=== PATIENT | male | born 1980 | race Caucasian/White ===

== ENCOUNTER 2017-12-22 10:10 | Emergency (ER) | payer BC ==
[2017-12-22 10:25] VITALS: BP 143/82
--- NOTE | 2017-12-22 11:12 | UC ---
General HPI - HPI Summary HPI Summary: Patient states that when he swallows he has some tenderness deep in his throat area(POINTS TO MID ANTERIOR NECK). He thinks he may have swollen glands for about a week as well. He states that he is concerned because he had some genetic testing that showed he had predisposition to esophageal cancer plus he has a cousin who just from some sort of a tumor or GI related tumor. He is denying any associated weight loss, fever or chills and reflux. He also denies any history of allergies. He has no trouble swallowing his secretions. Offers he drinks 1-2 alcoholic beverages daily and a caffeine beverage daily. - History of Current Complaint Chief Complaint: UCGeneralIllness Stated Complaint: THROAT/UPPER RESPIRATORY Time Seen by Provider: 12/22/17 10:45 Hx Obtained From: Patient Onset/Duration: Gradual Onset Timing: Constant Pain Intensity: 1 Aggravating: OCCURS WITH SWALLOW Alleviating: NOTHING - Allergy/Home Medications Allergies/Adverse Reactions: Allergies Allergy/AdvReac Type Severity Reaction Status Date / Time erythromycin base Allergy Unknown Verified 12/22/17 10:21 Reaction Details PMH/Surg Hx/FS Hx/Imm Hx Previously Healthy: Yes - Surgical History Surgical History: Yes Surgery Procedure, Year, and Place: T&A, ARTHROSCOPY LEFT KNEE, ORAL SURGERY - Family History Known Family History: Positive: Hypertension - Social History Occupation: Employed Full-time Alcohol Use: Daily Alcohol Amount: 1-2 daily- beer or wine Substance Use Type: None Smoking Status (MU): Never Smoked Tobacco Have You Smoked in the Last Year: No - Immunization History Hx Tetanus, Diphtheria Vaccination: No Vaccination Up to Date: Yes Review of Systems Constitutional: Negative Skin: Negative Eyes: Negative ENT: Negative Respiratory: Negative Cardiovascular: Negative Gastrointestinal: Negative Genitourinary: Negative Motor: Negative Neurovascular: Negative Musculoskeletal: Negative Neurological: Negative Psychological: Negative Is Patient Immunocompromised?: No All Other Systems Reviewed And Are Negative: Yes Physical Exam Triage Information Reviewed: Yes Appearance: Well-Appearing Vital Signs: Initial Vital Signs Temp 98.7 F 12/22/17 10:22 Pulse 76 12/22/17 10:22 Resp 16 12/22/17 10:22 BP 143/82 12/22/17 10:22 Pulse Ox 100 12/22/17 10:22 Eyes: Positive: Conjunctiva Clear ENT: Positive: Pharynx normal, TMs normal. Negative: Nasal congestion, Nasal drainage Neck: Positive: Supple, Nontender, No Lymphadenopathy, Other: - No stridor Respiratory: Positive: Lungs clear, Normal breath sounds Cardiovascular: Positive: RRR, No Murmur Abdomen Description: Positive: Nontender, No Organomegaly, Soft Bowel Sounds: Positive: Present Musculoskeletal: Positive: ROM Intact Neurological: Positive: Alert Psychological: Positive: Age Appropriate Behavior Skin Exam: Normal Diagnostics - Laboratory Diagnostic Studies Completed/Ordered: RAPID STREP=NEG Course/Dx - Course Course Of Treatment: subjective symptoms of dysphagia thus will refer to gi - Differential Dx - Multi-Symptom Provider Diagnoses: Dysphagia Discharge - Sign-Out/Discharge Documenting (check all that apply): Patient Departure - Discharge Plan Condition: Stable Disposition: HOME Patient Education Materials: Dysphagia (ED) Referrals: Ania Garcia PA [Primary Care Provider] - If Needed Waqar Krishnamurthy MD [Medical Doctor] - As Soon As Possible Additional Instructions: CALL DR COLIN(GI) TODAY FOR NEXT AVAILABLE APPOINTMENT. - Billing Disposition and Condition Condition: STABLE Disposition: Home
== END 2017-12-22 11:19 | disposition home or self-care (01) ==
LOC: UCCORT 10:10
DX: R13.10 Dysphagia, unspecified (principal); Z88.1 Allergy status to other antibiotic agents
CPT/HCPCS: 87651; 99211; G0463

== ENCOUNTER 2018-12-22 11:32 | Emergency (ER) | payer BC ==
[2018-12-22 12:11] VITALS: BP 126/77
--- NOTE | 2018-12-22 12:24 | UC ---
Hand/Wrist HPI - HPI Summary HPI Summary: 38-year-old male comes in with chief complaint of injury to his left middle and ring finger and right middle finger one week ago. 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 During that process he had injured his left middle and ring finger and his right middle finger. The right middle finger the PIP is the area of pain and swelling. On the left middle finger and ring finger of the DIP joints are affected. Patient reports the left middle finger DIP was angulated approximately 20. He was able to self reduce the angulation. Patient has swelling and the areas are described and they are tender to palpation. He does have full range of motion normal sensation. No skin break. - History Of Current Complaint Chief Complaint: UCUpperExtremity Stated Complaint: LEFT RING FINGER CONCERN Time Seen by Provider: 12/22/18 12:09 Pain Intensity: 3 - Allergies/Home Medications Allergies/Adverse Reactions: Allergies Allergy/AdvReac Type Severity Reaction Status Date / Time erythromycin base Allergy Unknown Verified 12/22/18 12:11 Reaction Details PMH/Surg Hx/FS Hx/Imm Hx Previously Healthy: Yes - Surgical History Surgical History: Yes Surgery Procedure, Year, and Place: T&A, ARTHROSCOPY LEFT KNEE, ORAL SURGERY - Family History Known Family History: Positive: Hypertension - Social History Alcohol Use: Daily Alcohol Amount: 1-2 daily- beer or wine Substance Use Type: None Smoking Status (MU): Never Smoked Tobacco Have You Smoked in the Last Year: No - Immunization History Hx Tetanus, Diphtheria Vaccination: No Vaccination Up to Date: Yes Review of Systems All Other Systems Reviewed And Are Negative: Yes Constitutional: Positive: Negative Skin: Positive: Other - Swelling and ecchymosis right middle finger PIP and left middle and ring finger DIP's. Eyes: Positive: Negative ENT: Positive: Negative Respiratory: Positive: Negative Cardiovascular: Positive: Negative Gastrointestinal: Positive: Negative Motor: Positive: Other - SEE HPI Neurovascular: Positive: Negative Musculoskeletal: Positive: Other: - SEE HPI Neurological: Positive: Negative Psychological: Positive: Negative Is Patient Immunocompromised?: No Physical Exam Triage Information Reviewed: Yes Appearance: Well-Appearing, No Pain Distress, Well-Nourished Vital Signs: Initial Vital Signs Temp 98 F 12/22/18 12:05 Pulse 63 12/22/18 12:05 Resp 16 08/06/19 12:05 BP 126/77 12/22/18 12:05 Pulse Ox 100 12/22/18 12:05 Vital Signs Reviewed: Yes Eye Exam: Normal Eyes: Positive: Conjunctiva Clear Neck: Positive: Supple Respiratory: Positive: No respiratory distress Musculoskeletal: Positive: Other: - There is swelling at the right middle finger PIP and left middle finger and ring finger DIPs. There is ecchymosis in all these areas. Full range of motion normal strength bulk capillary refill no sensation deficit. Normal alignment. Neurological: Positive: Alert Psychological: Positive: Age Appropriate Behavior Skin: Positive: Other - Swelling and ecchymosis right middle finger PIP and left middle and ring finger DIP's. Hand/Wrist Course/Dx - Course Course Of Treatment: Patient Name: APARNA SPANN Medical Record#: [id number] Ordering Physician: Patrick Fletcher MD Acct.#: [id number] : 1980 Age: 38 Sex: M Location: [facility] Exam Date: 12/22/181217 ADM Status: REG ER Order Information: FINGER RIGHT MIDDLE Accession Number: [id number] CPT: 55180 Indication: Right middle finger injury. 3 views of the right middle finger demonstrates no definite fracture or dislocation. No other bone or joint abnormality is noted. IMPRESSION: Right middle finger demonstrates no fracture. <Electronically signed by Teena Antonio MD in OV> 12/22/18 1245 Patient Name: APARNA PSANN Medical Record#: [id number] Ordering Physician: Patrick Fletcher MD Acct.#: [id number] : 1980 Age: 38 Sex: M Location: [facility] Exam Date: 12/22/181217 ADM Status: REG ER Order Information: FINGER LEFT RING Accession Number: [id number] CPT: 59302 Indication: Left middle and ring finger. 3 views of left middle and ring finger are reviewed. The left middle finger demonstrates a corner fracture of the proximal end of the distal phalanx of the third digit without significant displacement. This is on the dorsal aspect. The ring finger demonstrates oblique fracture through the middle phalanx of the fourth digit. No significant displacement is noted. IMPRESSION: Tiny fracture at the ulnar aspect of the proximal and of the distal phalanx of the third digit without significant displacement. Oblique fracture through the middle phalanx of the fourth digit without significant displacement. <Electronically signed by Teena Antonio MD in OV> 12/22/18 1242 Patient Name: APARNA SPANN Medical Record#: [id number] Ordering Physician: Patrick Fletcher MD Acct.#: [id number] : 1980 Age: 38 Sex: M [facility]: [facility] Exam Date: 12/22/181217 ADM Status: REG ER Order Information: FINGER LEFT MIDDLE Accession Number: [id number] CPT: 79677 Indication: Left middle and ring finger. 3 views of left middle and ring finger are reviewed. The left middle finger demonstrates a corner fracture of the proximal end of the distal phalanx of the third digit without significant displacement. This is on the dorsal aspect. The ring finger demonstrates oblique fracture through the middle phalanx of the fourth digit. No significant displacement is noted. IMPRESSION: Tiny fracture at the ulnar aspect of the proximal and of the distal phalanx of the third digit without significant displacement. Oblique fracture through the middle phalanx of the fourth digit without significant displacement. <Electronically signed by Teena Antonio MD in OV> 12/22/18 1242 I discussed the x-ray results with the patient. Patient's left middle and ring finger were splinted by nursing patient neurovascular intact after placement of the splint. Plan is follow up with orthopedics. - Differential Dx/Diagnosis Provider Diagnosis: Fracture of phalanx of left ring finger, Fracture of phalanx of left middle finger, Sprain of right middle finger Discharge - Sign-Out/Discharge Documenting (check all that apply): Patient Departure All imaging exams completed and their final reports reviewed: Yes - Discharge Plan Condition: Stable Disposition: HOME Patient Education Materials: Finger Fracture (ED) Referrals: Cuco Disla MD [Primary Care Provider] - Parviz Juan MD [Medical Doctor] - Margo Moya MD [Medical Doctor] - Additional Instructions: FOLLOW UP WITH ORTHOPEDICS. GET REEVALUATED SOONER IF WORSE OR ANY QUESTIONS OR CONCERNS. - Billing Disposition and Condition Condition: STABLE Disposition: Home
== END 2018-12-22 13:00 | disposition home or self-care (01) ==
LOC: UCCORT 11:32
DX: S62.627A Displaced fracture of middle phalanx of left little finger, initial encounter for closed fracture (principal); S62.633A Displaced fracture of distal phalanx of left middle finger, initial encounter for closed fracture; S63.612A Unspecified sprain of right middle finger, initial encounter; X58.XXXA Exposure to other specified factors, initial encounter; Y93.89 Activity, other specified
CPT/HCPCS: 73140; 99211; G0463